=== PATIENT | female | born 2005 | race African-American/Black ===

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

== ENCOUNTER 2023-03-16 08:47 | Emergency (ER) | payer OTHER, SELFPAY ==
--- NOTE | ~2023-03-16 | US_ITS ---
EXAMINATION: US OB <=14 wk fetus w TV DATE: 03/16/2023 11:33 INDICATION: Concern for ectopic . TECHNIQUE: Real-time pelvic ultrasound utilizing both a transvaginal and transabdominal probe was pe rformed. The interpreting radiologist was not present for the study. COMPARISON: None. FINDINGS: The uterus measures 7.9 x 4.6 x 5.8 cm. There is an intrauterine gestational sac. A yolk sac is iden tified with approximately 1 mm region of thickening along the margin of the yolk sac suggesting a pos sible early pole. The mean sac diameter measures 6 mm which correlates with an estimated gestat ional age of 5 weeks and 2 days. The right ovary measures 2.2 x 2.0 x 3.6 cm. The left ovary measures 2.8 x 1.6 x 2.0 cm. Flow identified at both ovaries on color Doppler. There is no free fluid in the pelvis. IMPRESSION: 1. Single intrauterine gestational sac with single yolk sac and possible 1 mm pole. 2. Gestational age by ultrasound based upon mean sac diameter of 5 weeks 2 day(s) +/- 3 day(s) with ultrasound estimated date of delivery (CORRINE) of 11/14/2023. Reviewed, dictated and finalized at location A. IMPRESSION: 1. Single intrauterine gestational sac with single yolk sac and possible 1 mm f etal pole. 2. Gestational age by ultrasound based upon mean sac diameter of 5 weeks 2 day (s) +/- 3 day(s) with ultrasound estimated date of delivery (CORRINE) of 11/14/2023.
[2023-03-16 08:51] VITALS: BP 125/74; PULSE 100; RESP 18; TEMP 36.6; O2SAT 100
--- NOTE | 2023-03-16 09:26 | ED.FEMALEGU ---
HPI - Female Genitourinary General Chief complaint: Vaginal Bleeding Stated complaint: Vaginal bleeding 5 weeks Time Seen by Provider: 03/16/23 09:01 History of Present Illness HPI Narrative: 18-year-old female, G1, P0, LMP 02/06 who is currently 4 to 5 weeks reports for evaluation for vaginal bleeding this morning. Patient states she noticed blood in her underwear after she worked out this morning. States it was a small amount of dark red blood and since then, every time she wipes she has a small amount of blood on the toilet paper. She is also reporting intermittent left lower quadrant abdominal pain that is worse with moving and when urinating. She denies dysuria, urinary frequency or urgency, vomiting, diarrhea, back pain. Denies fevers, vaginal discharge, concern for STDs. She has an appointment with her OB coming up at [facility] in [place]. She has not had a confirmed IUP. Related Data Allergies Allergy/AdvReac Type Severity Reaction Status Date / Time No Known Allergies Allergy Verified 03/16/23 08:48 Review of Systems Review of Systems: CONSTITUTIONAL: Denies fever, chills EYES: Denies visual changes, redness, or discharge. ENT: Denies rhinorrhea, congestion, sore throat, or otalgia. CARDIOVASCULAR: Denies chest pain, palpitations, or edema. RESPIRATORY: Denies cough or dyspnea. GASTROINTESTINAL: See HPI GENITOURINARY: Denies dysuria or hematuria. SKIN: Denies rash or itching. MUSCULOSKELETAL: Denies back pain, joint pain, or myalgia. NEUROLOGIC: Denies headache, numbness, dizziness, or weakness. PSYCHIATRIC: Denies anxiety or depression. [facility] Past Medical History Medical History No active medical problems Social History Social History Smoking status: Never smoker Alcohol intake: current Substance use: never Lack of Food: Never True Current Housing: I Have Housing Concerned About Future Housing: No Difficulty Paying Gas/Electric Bills: No Difficulty Paying for Meds: No Currently Unemployed: No Education: High School Diploma/GED Difficulty w/ Childcare or Family Care: No Exam Narrative: GENERAL: Well-appearing, in no acute distress. Patient resting comfortably in exam bed. She is pleasant and conversational. HEAD: Normocephalic EYES: PERRLA ENT: Nares clear. Mucous membranes moist. Oropharynx without tonsillar hypertrophy exudate or other lesions. NECK: Supple. CHEST: No respiratory distress. Clear to auscultation, no adventitious breath sounds. HEART: Regular rate and rhythm. No murmur heard. Normal peripheral pulses. ABDOMEN: Soft, nontender, normal active bowel sounds. No CVA tenderness. : No lesions, rashes or erythema to external genitalia, vaginal canal or cervix. Cervical os closed. No blood in vaginal vault. Scant amount of clear discharge. No cervical motion tenderness, adnexal tenderness or masses appreciated. EXTREMITIES: Normal range of motion. No edema. SKIN: Warm, dry, no rash. NEURO: No focal deficits. Alert and oriented x3. PSYCH: Normal mood and affect. Course Vital Signs Vital signs: Vital Signs Temperature 98 F 03/16/23 08:51 Pulse Rate 100 03/16/23 08:51 Respiratory Rate 18 03/16/23 08:51 Blood Pressure 125/74 03/16/23 08:51 Pulse Oximetry 100 03/16/23 08:51 Oxygen Delivery Room Air 03/16/23 08:51 Temperature 98 F 03/16/23 08:51 Pulse Rate 98 03/16/23 09:48 Respiratory Rate 18 03/16/23 08:51 Blood Pressure 125/79 03/16/23 09:48 Pulse Oximetry 100 03/16/23 08:51 Oxygen Delivery Room Air 03/16/23 08:51 MDM - Female Genitourinary MDM Narrative Medical decision making narrative: 18 y/o F who is 4-5 weeks reports for evaluation for vaginal spotting this morning. See HPI for further history. Pt is nontoxic and well appearing on ex
[2023-03-16] MEDS: SODIUM CHLORIDE 0.9% IV 1,000 ML 999 ML IV CONT (09:41)
[2023-03-16 09:42] VITALS: BP 120/65; PULSE 102
[2023-03-16 09:43] LABS: Basophils Percent Auto 0.2 % (0.2-1.2); Eosinophils Absolute Auto 0.1 K/mm3 (0-0.3); Eosinophils Percent Auto 1.2 % (0-4.4); Hematocrit 38.8 % (37.0-47.0); Hemoglobin 12.7 g/dL (12.0-15.0); Immature Granulocyte Absolute 0.05 K/mm3 (0.00-0.031); Immature Granulocyte Percent A 0.4 % (0-0.5); Lymphocytes Absolute Auto 1.49 K/mm3 (0.9-3.2); Lymphocytes Percent Auto 12.9 % (18.3-44.2); Mean Corpuscular HGB Conc 32.7 g/dl (32-36); Mean Corpuscular Hemoglobin 30.2 pg (26-34); Mean Corpuscular Volume 92.4 fl (80-100); Mean Platelet Volume 9.9 fl (7.4-10.4); Monocytes Absolute Auto 0.4 K/mm3 (0.1-0.6); Monocytes Percent Auto 3.4 % (2.6-8.5); Neutrophils Absolute Auto 9.5 K/mm3 (1.3-6.7); Neutrophils Percent Auto 81.9 % (45.5-73.1); Platelet Count Result 276 k/mm3 (150-375); Red Cell Distribution Width 12.4 % (11.5-14.5); White Blood Count 11.5 K/mm3 (4.5-10.0)
[2023-03-16 09:46] VITALS: BP 118/68; PULSE 97
[2023-03-16 09:48] VITALS: BP 125/79; PULSE 98
[2023-03-16 09:48] LABS: Appearance Urine Clear (Clear); Bacteria Urine None Seen /hpf; Bilirubin Urine Negative (Negative); Blood Urine 3+ (Negative); Color Urine Yellow (Yellow); Glucose Urine UA Negative (Negative); Ketones Urine Trace mg/dL (Negative); Leukocyte Esterase Ur Negative LEU/UL (Negative); Nitrate Urine Negative (Negative); Non Pathogenic Casts 0-2; Protein Urine Negative (Negative); Specific Grav Ur 1.029 (1.001-1.035); Squamous Epithelial Cell Urine Occasional /hpf (Few); WBC Urine 0-5 /hpf
[2023-03-16 09:54] LABS: Alanine Aminotransferase 24 U/L (6-35); Albumin Level 4.5 g/dL (3.5-5.1); Alkaline Phosphatase 79 U/L (38-126); Anion Gap 10 mmol/L (8-16); Aspartate Amino Transferase 29 U/L (14-36); Bilirubin,Total 0.7 mg/dL (0.2-1.3); Blood Urea Nitrogen 19 mg/dL (7-17); Calcium 8.9 mg/dL (8.4-10.2); Carbon Dioxide 21 mmol/L (22-30); Chloride 104 mmol/L (98-107); Estimated CRCL calculation 82 ml/min; Estimated Glomerular Filt Rate > 60; Glucose 87 mg/dL (65-110); Potassium 4.3 mmol/L (3.4-5.0); Prothrombin Time 13.8 Seconds (11.1-14.7); Sodium 135 mmol/L (137-145)
[2023-03-16 09:55] LABS: Add Urine Microscopic? YES; Partial Thromboplastin Time 27.9 SECONDS (22.3-36.8)
[2023-03-16 12:52] LABS: Trichomonas Vag PCR NOT DETECTED (NOT DETECTE)
[2023-03-16 13:15] LABS: Chlamydia trachomatis DETECTED (NOT DETECTE); Neisseria gonorrhoeae PCR NOT DETECTED (NOT DETECTE)
[2023-03-16] MEDS: AZITHROMYCIN 250 MG TABLET 1000 MG PO (13:35)
[2023-03-16] MEDS: cefTRIAXone 1 GM VIAL 0.5 GM IM (13:35)
[2023-03-16] MEDS: LIDOCAINE HCL 1% LOCAL INJ 10 ML VIAL (13:37)
[2023-03-16 13:39] VITALS: BP 116/82; PULSE 95; RESP 18; O2SAT 100
== END 2023-03-16 14:00 | disposition home or self-care (01) ==
PROVIDERS: Emergency Provider Physician Assistant
DX: O20.9 Hemorrhage in early pregnancy, unspecified (principal); O98.811 Other maternal infectious and parasitic diseases complicating pregnancy, first trimester; Z3A.01 Less than 8 weeks gestation of pregnancy
CPT/HCPCS: 36415; 76801; 76817; 80053; 81001; 81025; 84702; 85025; 85461; 85610; 85730; 86850; 86900; 86901; 87491; 87591; 87661; 96360; 96372; 99284; A9270; J0696; J7030

== ENCOUNTER 2023-03-24 10:31 | Emergency (ER) | payer OTHER, SELFPAY ==
[2023-03-24 10:56] VITALS: BP 135/78; PULSE 76; RESP 20; TEMP 36.3; O2SAT 100
[2023-03-24 11:28] VITALS: BP 120/62; PULSE 71
[2023-03-24 11:29] VITALS: BP 128/76; BP 130/71; PULSE 74; PULSE 84
[2023-03-24 11:39] LABS: Basophils Percent Auto 0.3 % (0.2-1.2); Eosinophils Absolute Auto 0.2 K/mm3 (0-0.3); Eosinophils Percent Auto 1.3 % (0-4.4); Hemoglobin 13.4 g/dL (12.0-15.0); Immature Granulocyte Absolute 0.06 K/mm3 (0.00-0.031); Immature Granulocyte Percent A 0.5 % (0-0.5); Lymphocytes Absolute Auto 2.41 K/mm3 (0.9-3.2); Lymphocytes Percent Auto 19.4 % (18.3-44.2); Mean Corpuscular HGB Conc 32.7 g/dl (32-36); Mean Corpuscular Hemoglobin 30.6 pg (26-34); Mean Corpuscular Volume 93.6 fl (80-100); Mean Platelet Volume 9.8 fl (7.4-10.4); Monocytes Absolute Auto 0.9 K/mm3 (0.1-0.6); Monocytes Percent Auto 7.2 % (2.6-8.5); Neutrophils Absolute Auto 8.9 K/mm3 (1.3-6.7); Neutrophils Percent Auto 71.3 % (45.5-73.1); Platelet Count Result 311 k/mm3 (150-375); Red Blood Count 4.38 M/mm3 (4.2-5.4); Red Cell Distribution Width 12.4 % (11.5-14.5); White Blood Count 12.4 K/mm3 (4.5-10.0)
[2023-03-24 11:45] LABS: Appearance Urine Clear (Clear); Bacteria Urine None Seen /hpf; Bilirubin Urine Negative (Negative); Blood Urine Negative (Negative); Color Urine Yellow (Yellow); Glucose Urine UA Negative (Negative); Ketones Urine Negative (Negative); Leukocyte Esterase Ur 1+ LEU/UL (Negative); Nitrate Urine Negative (Negative); Non Pathogenic Casts 0-2; Protein Urine Negative (Negative); RBC Urine 0-2 /hpf (0-2); Specific Grav Ur 1.017 (1.001-1.035); Squamous Epithelial Cell Urine Few /hpf (Few); Urobilinogen Urine 0.2 mg/dL (<2.0)
[2023-03-24 11:50] LABS: Add Urine Microscopic? YES
--- NOTE | 2023-03-24 12:07 | ED.GENADULT ---
HPI - General Adult General Chief complaint: Vaginal Bleeding Stated complaint: vaginal bleeding Time Seen by Provider: 03/24/23 11:05 History of Present Illness HPI narrative: Efrain Ríos is a 18 y/o female who presents with reports of being - about 6 weeks 4 days along today. She states she was here a week ago for vaginal bleeding and found to have an intrauterine yolk sack present. She comes in today with reports of having a slight increase in the vaginal bleeding this past weekend/ now reports very minimal vaginal spotting / hardly at all. She denies any sever abdominal pain. 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 No fever/chills/ nausea/vomiting/ back pain Related Data Allergies Allergy/AdvReac Type Severity Reaction Status Date / Time No Known Allergies Allergy Verified 03/24/23 10:59 Review of Systems Review of Systems: CONSTITUTIONAL: Denies fever, chills, or sweats. EYES: Denies visual changes, redness, or discharge. ENT: Denies rhinorrhea, congestion, sore throat, or otalgia. CARDIOVASCULAR: Denies chest pain, palpitations, or edema. RESPIRATORY: Denies cough or dyspnea. 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 GENITOURINARY: Denies dysuria or hematuria. SKIN: Denies rash or itching. MUSCULOSKELETAL: Denies back pain, joint pain, reports lower extremity aches NEUROLOGIC: Denies headache, numbness, dizziness, or weakness. PSYCHIATRIC: Denies anxiety or depression. [facility] Past Medical History Medical History No active medical problems Social History Social History Smoking status: Never smoker Alcohol intake: current Substance use: never Lack of Food: Never True Current Housing: I Have Housing Concerned About Future Housing: No Difficulty Paying Gas/Electric Bills: No Difficulty Paying for Meds: No Currently Unemployed: No Education: High School Diploma/GED Difficulty w/ Childcare or Family Care: No Exam Narrative: GENERAL: Well-appearing, well-nourished, and in no acute distress. HEAD: Normocephalic, atraumatic. EYES: PERRLA and EOMI. ENT: Nares clear, no rhinorrhea or epistaxis. Mucous membranes moist. Oropharynx without tonsillar hypertrophy exudate or other lesions. NECK: Supple. No adenopathy or masses. No carotid bruits or JVD CHEST: Clear to auscultation. No respiratory distress. No wheezes rales or rhonchi HEART: Regular rate and rhythm. No murmur heard. Normal peripheral pulses. ABDOMEN: Soft, nontender, nondistended, normal active bowel sounds. EXTREMITIES: Normal range of motion. No edema. SKIN: Warm, dry, no rash. NEURO: No focal deficits. Alert and oriented x3. PSYCH: Normal mood and affect. Course Vital Signs Vital signs: Vital Signs Temperature 36.3 C L 03/24/23 10:56 Pulse Rate 76 03/24/23 10:56 Respiratory Rate 20 03/24/23 10:56 Blood Pressure 135/78 03/24/23 10:56 Pulse Oximetry 100 03/24/23 10:56 Oxygen Delivery Room Air 03/24/23 10:56 Temperature 36.3 C L 03/24/23 10:56 Pulse Rate 84 03/24/23 11:29 Respiratory Rate 20 03/24/23 10:56 Blood Pressure 130/71 03/24/23 11:29 Pulse Oximetry 100 03/24/23 10:56 Oxygen Delivery Room Air 03/24/23 10:56 Medical Decision Making MDM Narrative Medical decision making narrative: Patient is here with early and vaginal bleeding that as of today has improved to hardly any bleeding. She is concerned that exercising might be effecting her Not concerned for Ectopic - she had an ultrasound completed a week ago that verified intrauterine yolk sack. Vaginal bleeding is improving as of today will check beta quant / basic labs and pelvic exa
[2023-03-24 13:04] VITALS: BP 121/71; PULSE 74; RESP 18; O2SAT 100
== END 2023-03-24 13:05 | disposition home or self-care (01) ==
PROVIDERS: Emergency Provider Nurse Practitioner Family
DX: O20.0 Threatened abortion (principal); O23.41 Unspecified infection of urinary tract in pregnancy, first trimester; N39.0 Urinary tract infection, site not specified; Z3A.01 Less than 8 weeks gestation of pregnancy
CPT/HCPCS: 36415; 81001; 81025; 84702; 85025; 85461; 86850; 86900; 86901; 87086; 99284